=== PATIENT | female | born 2000 | race Caucasian/White ===

== ENCOUNTER 2020-02-15 06:40 | Emergency (ER) | payer BC ==
[~2020-02-15] VITALS: Ht 165.1 cm; Wt 89.8 kg
[2020-02-15 08:01] LABS: BASOPHILS # (AUTO) 0.03 x10^3/uL (0-0.3); BASOPHILS % (AUTO) 0 % (0-1); EOSINOPHILS # (AUTO) 0.12 x10^3/uL (0-0.8); EOSINOPHILS % (AUTO) 1 % (1-7); LYMPHOCYTES # (AUTO) 3.09 x10^3/uL (1-6.1); LYMPHOCYTES % (AUTO) 32 % (22-44); MD NO; MEAN CORPUSCULAR HEMOGLOBIN 26.4 pg (27.0-34.8); MEAN CORPUSCULAR HGB CONC 32.5 g/dL (32.4-35.8); MEAN CORPUSCULAR VOLUME 81.3 fL (80-100); MEAN PLATELET VOLUME 9.4 fL (7.4-10.4); MONOCYTES # (AUTO) 0.62 x10^3/uL (0-1.4); MONOCYTES % (AUTO) 7 % (2-9); NEUTROPHILS # (AUTO) 5.72 x10^3/uL (1.8-8.0); NEUTROPHILS % (AUTO) 60 % (42-75); PLATELET COUNT 340 x10^3/uL (130-400); RED BLOOD COUNT 4.73 x10^6/uL (3.82-5.3); RED CELL DISTRIBUTION WIDTH 14.1 % (9.6-15.2)
[2020-02-15 08:11] LABS: ALANINE AMINOTRANSFERASE 16 U/L (12-78); ALBUMIN 3.3 g/dL (3.4-5.0); ANION GAP 10 mmol/L (5-15); CALCIUM 8.7 mg/dL (8.5-10.1); CHLORIDE 106 mmol/L (98-107)
--- NOTE | 2020-02-15 08:11 | NUR ---
PT RESTING CALMLY IN BED IN [facility]OWN. PT HAS CALL LIGHT WITHIN REACH. LABS HAVE BEEN DRAWN. XRAY HERE FOR BEDSIDE SCAN. WILL CONTINUE TO MONITOR.
[2020-02-15 08:15] LABS: ALKALINE PHOSPHATASE 77 U/L (45-117); BILIRUBIN,TOTAL 0.3 mg/dL (0.2-1.0); TOTAL PROTEIN 7.4 g/dL (6.4-8.2); TROPONIN I < 0.015 ng/mL (0.000-0.045)
--- NOTE | 2020-02-15 09:27 | NUR ---
HCG HAD TO BE REDRAWN, WAS CANCELLED FOR UNKNOWN REASON. STILL NOT RESULTED.
--- NOTE | 2020-02-15 09:43 | NUR ---
RESULTS BACK. PT UP FOR RECHECK. PT GIVEN WARM BLANKET AND REPOSITIONED FOR COMFORT.
[2020-02-15 10:50] VITALS: BP 129/71
== END 2020-02-15 10:52 | disposition home or self-care (01) ==
LOC: ED 08:08
DX: R00.2 Palpitations (principal); R07.89 Other chest pain; R42 Dizziness and giddiness; R94.31 Abnormal electrocardiogram [ECG] [EKG]
CPT/HCPCS: 36415; 71045; 80053; 84439; 84443; 84484; 84703; 85025; 93005; 99285

== ENCOUNTER → 2020-03-04 | Outpatient (CLI) | payer BC | END | disposition home or self-care (01) | LOC: CVU 13:05 | PROVIDERS: ATTEND Internal Medicine Cardiovascular Disease | DX: R07.89 Other chest pain (principal); R06.02 Shortness of breath | CPT/HCPCS: 93306 ==

== ENCOUNTER 2020-03-25 22:25 | Emergency (ER) | payer BC ==
[~2020-03-25] VITALS: Ht 165.1 cm; Wt 93.7 kg
[2020-03-25 22:31] VITALS: BP 159/88
[2020-03-26] MEDS ORDERED: KETOROLAC 30 MG/1 ML ONE (00:14)
[2020-03-26] MEDS ORDERED: KETOROLAC 30 MG/1 ML IM ONE (00:30)
== END 2020-03-26 01:00 | disposition home or self-care (01) ==
LOC: ED 23:59
DX: S90.111A Contusion of right great toe without damage to nail, initial encounter (principal); G89.11 Acute pain due to trauma; M79.671 Pain in right foot; X58.XXXA Exposure to other specified factors, initial encounter; Y93.89 Activity, other specified; Y92.89 Other specified places as the place of occurrence of the external cause; Y99.8 Other external cause status
CPT/HCPCS: 73630; 96372; 99283; J1885

== ENCOUNTER 2020-04-26 06:25 | Emergency (ER) | payer BC ==
[~2020-04-26] VITALS: Ht 165.1 cm; Wt 92.9 kg
--- NOTE | 2020-04-26 06:49 | NUR ---
PT HERE FOR GIB, COMPLAINTS OF NEDA RED BLOOD IN STOOL ON AND OFF FOR LAST 2 WEEKS. PT DENIES ABD PAIN, CONSTIPATION, AND DIARRHEA, STATES STOOL IS FORMED. HAS HX OF GIB
[2020-04-26 07:12] VITALS: BP 134/87
== END 2020-04-26 07:14 | disposition home or self-care (01) ==
LOC: ED 06:58
DX: K62.5 Hemorrhage of anus and rectum (principal); K64.8 Other hemorrhoids
CPT/HCPCS: 99282

== ENCOUNTER 2020-05-24 17:12 | Emergency (ER) | payer BC ==
[~2020-05-24] VITALS: Ht 162.6 cm; Wt 93.9 kg
--- NOTE | 2020-05-24 17:40 | NUR ---
C-COLLAR PLACED IN TRIAGE
--- NOTE | 2020-05-24 18:22 | NUR ---
PT TO RM FROM LOBBY
--- NOTE | 2020-05-24 18:54 | NUR ---
RECEIVED REPORT FROM HERB Haile RN TO ASSUME CARE; PT. OUT OF ROOM FOR IMAGING.
[2020-05-24 19:04] VITALS: BP 141/92
--- NOTE | 2020-05-24 19:04 | NUR ---
VS UPDATD. PT. BACK FROM CT. C-COLLAR IN PLACE. PT. HAS FRIEND AT AND IS ON HER PHONE. DENIES NEEDS. AWATING CT READS.
== END 2020-05-24 19:56 | disposition home or self-care (01) ==
LOC: ED 19:00
DX: S06.0X0A Concussion without loss of consciousness, initial encounter (principal); M54.2 Cervicalgia; R11.0 Nausea; W18.30XA Fall on same level, unspecified, initial encounter; Y93.89 Activity, other specified; Y92.89 Other specified places as the place of occurrence of the external cause; Y99.8 Other external cause status
CPT/HCPCS: 70450; 72125; 99285